=== PATIENT | male | born 1990 | race Caucasian/White ===

== ENCOUNTER 2023-06-30 12:32 | Emergency (ER) | payer BC, SELFPAY ==
[2023-06-30] VITALS (10 sets, daily range): BP systolic 121–130; BP diastolic 84–98; PULSE 73–122; RESP 14–18; TEMP 37; O2SAT 96–98; BMI 20.7
--- NOTE | 2023-06-30 13:16 | CT_ITS ---
Patient: DAKOTAH MARTINEZ Facility:?[facility] Patient ID:?[id number] Site Patient ID:?[id number]. Site :?[id number] Study:?CT-Abdomen/Pelvis W/IV ONLY-06/30/2023 2:01:10 PM Ordering Physician:AMADA Final Report: INDICATION: Abdominal pain. TECHNIQUE: Multiplanar CT examination of the abdomen and pelvis was performed after the administration of 83 mL Isovue 370 intravenous contrast. COMPARISON: None. FINDINGS: Lower chest: No focal consolidation. Normal heart size. No pleural effusions or pneumothorax. Linear bandlike opacifications at the lung bases, likely subsegmental atelectasis and/or scarring. Liver: Unremarkable. Gallbladder: Unremarkable. Biliary: Unremarkable. Pancreas: Within normal limits. Spleen: Unremarkable. Adrenal glands: Unremarkable. Renal/ureters/bladder: Normal in size and symmetrically enhancing. No obstructive uropathy. No hydronephrosis or obstructive urinary calculi. No suspicious renal masses. The ureters appear unremarkable. The bladder is within normal limits. Pelvis: Unremarkable. Gastrointestinal: No bowel wall thickening or bowel obstruction. Normal appendix. No significant colonic diverticulosis. Moderate colonic stool burden. Vasculature: No aortic aneurysm. The portal vein remains patent. No significant atherosclerotic calcifications. Lymph nodes: No pathologic lymphadenopathy by size criteria. Peritoneum: No free fluid or pneumoperitoneum. No drainable fluid collections. Abdominal wall/soft tissues: Unremarkable. Bones: Status post prior ORIF of the left proximal femur mild degenerative changes of the visualized thoracolumbar spine. No acute osseous abnormalities. IMPRESSION: No acute abdominopelvic pathology. The etiology of the patient`s abdominal pain is not elucidated on this examination. Please note that all CT scans at this facility use dose modulation, iterative reconstruction, and/or weight-based dosing when appropriate to reduce radiation dose to as low as reasonably achievable. Dictated by Eric Costa MD @ 06/30/2023 3:22:29 PM Signed by:?Eric Costa MD @06/30/2023 3:22:29 PM (Electronic Signature)
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
[2023-06-30] MEDS: 0.9 % SODIUM CHLORIDE 1000 ml 1,000 ML 2000 ML IV (13:34)
[2023-06-30] MEDS: HYDROmorphone 0.5 mg/0.5 ml inj 1 MG IVP (13:34)
[2023-06-30] MEDS: ONDANSETRON 2 MG/ML inj 4 MG IVP (13:35)
[2023-06-30 13:37] LABS: Lactate* 1.4 mmol/L (0.5-1.9)
[2023-06-30 13:39] LABS: Basophils Percent Auto 0.6 % (0.0-3.0); Hematocrit 41.4 % (37.0-53.0); Hemoglobin* 14.5 gm/dL (13.5-17.5); Lymphocytes Percent Auto 31.9 % (20-44); Mean Corpuscular HGB Conc 35 gm/dL (32-36); Mean Corpuscular Hemoglobin 29 pg (26-34); Mean Corpuscular Volume 84 fL (80-100); Neutrophils Percent Auto 55.5 % (42.0-72.0); Platelet Count* 187 K/uL (140-440); RDW Coefficient of Variation % 12.5 % (11.5-15.5); Red Blood Count 4.95 m/uL (4.30-5.90); White Blood Count* 3.23 K/uL (4.50-11.00)
[2023-06-30 13:44] LABS: Slide Review Reflex No
[2023-06-30 14:01] LABS: Albumin* 4.5 g/dL (3.3-5.0); Chloride* 108 mmol/L (96-114)
[2023-06-30 14:02] LABS: Potassium* 4.2 mmol/L (3.6-5.1); Sodium* 140 mmol/L (135-149)
[2023-06-30 14:04] LABS: Amylase* 56 U/L (18-89)
[2023-06-30 14:05] LABS: Alanine Aminotransferase* 83 U/L (4-50); Alkaline Phosphatase* 67 U/L (40-150); Anion Gap 5 mEq/L (7-15); Aspartate Amino Transferase* 51 U/L (12-35); Bilirubin Direct* 0.1 mg/dL (0.0-0.5); Bilirubin Total* 0.4 mg/dL (0.1-1.5); Blood Urea Nitrogen* 13 mg/dL (5-24); Calcium* 9.3 mg/dL (8.4-10.6); Carbon Dioxide* 27 mmol/L (20-32); Creatinine* 0.7 mg/dL (0.5-1.5); Est. Creatinine Clearance* 162.18; Estimated Glomerular Filt Rate 124 ml/min; Glucose* 99 mg/dL (60-115); Lipase* 20 U/L (23-300); Total Protein* 7.4 g/dL (6.0-8.3)
[2023-06-30] MEDS: HYDROmorphone 0.5 mg/0.5 ml inj IVP (14:09)
[2023-06-30] MEDS: MORPHINE 4 MG/ML INJ IVP (14:35)
[2023-06-30 14:52] LABS: C Reactive Protein* < 0.5 mg/dL (0.5-1.0)
[2023-06-30] MEDS: PANTOPRAZOLE SODIUM 40 MG INJ IVP (15:10)
[2023-06-30 15:31] LABS: Ethanol* < 0.01 % (0.01-0.03)
== END 2023-06-30 15:38 | disposition home or self-care (01) ==
PROVIDERS: Emergency Provider Family Medicine
DX: K29.70 Gastritis, unspecified, without bleeding (principal)
CPT/HCPCS: 36415; 74177; 80048; 80076; 82077; 82150; 83605; 83690; 85025; 86140; 94761; 96374; 96375; 99284; 99285; C9113; J1170; J2270; J2405; J7030; Q9967

== ENCOUNTER 2023-07-09 19:38 | Emergency (ER) | payer BC, SELFPAY ==
[2023-07-09 20:19] VITALS: BP 148/92; PULSE 101; RESP 20; TEMP 36.6; O2SAT 99; BMI 20.7
--- NOTE | 2023-07-11 00:07 | W.ED.CHARTNO ---
ED Chart Note Chart Note Details Date: 07/09/23 Details: Left without being seen by provider
== END 2023-07-10 00:26 | disposition home or self-care (01) ==
PROVIDERS: Emergency Provider Student in an Organized Health Care Education/Training Program
DX: Z53.21 Procedure and treatment not carried out due to patient leaving prior to being seen by health care provider (principal)